=== PATIENT | male | born 1960 | race Caucasian/White ===

== ENCOUNTER 2019-12-31 13:48 | Day surgery (SDC) | payer MEDICARE ==
[~2019-12-31] VITALS: Ht 182.9 cm; Wt 83.1 kg
[~2019-12-31 13:48] MED LIST: CEFU500T30 PO; Levothyroxine200 MCG
--- NOTE | 2019-12-31 15:55 | NUR ---
12/31/19 1555 Arcelia Hernandez CXRAY DONE IN PAR, O2 ON AT 3 LITERS TRACH MASK.
--- NOTE | 2019-12-31 16:02 | NUR ---
12/31/19 1602 Arcelia Hernandez CXRAY HAD TO BE BE REDONE IN STEP DOWN RADIOLOGIST SIAD THERE WAS TO MUCH ARTIFACT. PT TOLERATED THE XRAYS WITHOUT INCIDENT.
== END 2019-12-31 16:50 | disposition home or self-care (01) ==
LOC: ORSCSDS 13:48
PROVIDERS: Surgery
PROC: 0JH60WZ Insertion of Totally Implantable Vascular Access Device into Chest Subcutaneous Tissue and Fascia, Open Approach (ICD-10-PCS; principal; 2019-12-31 14:45)
DX: C32.2 Malignant neoplasm of subglottis (principal); Z93.0 Tracheostomy status; E03.9 Hypothyroidism, unspecified; E78.5 Hyperlipidemia, unspecified; Z79.82 Long term (current) use of aspirin; Z79.899 Other long term (current) drug therapy; Z87.891 Personal history of nicotine dependence
CPT/HCPCS: 77001; C1788; J0690; J1100; J1642; J2001; J2250; J2405; J2704; J3010; J7120